=== PATIENT | female | born 1970 | race Caucasian/White ===

== ENCOUNTER 2016-05-26 13:18 | Day surgery (SDC) | payer SELFPAY ==
--- NOTE | ~2016-05-26 | OP ---
Record Of Operation [facility] [address] [place]. [address] NAME: CAMERON REARDON : 70 STATUS : REG [facility]#: [id number] AGE: 45 ADM/REG DATE : 05/26/16 MR#: [id number] REPORT SERV DATE: 05/27/16 DICTATED BY: COOPER MILLER III DATE: 05/26/16 REPORT STATUS : Draft TRANSCRIBED BY: MODL DATE: 05/26/16 DATE OF PROCEDURE: 05/26/2016 PROCEDURE: Cystoscopy, right ureteroscopic stone fragmentation, and insertion of double-J stent. PREOPERATIVE DIAGNOSIS: Right renal stone. POSTOPERATIVE DIAGNOSIS: Right renal stone. ANESTHESIA: General. DESCRIPTION OF PROCEDURE: Following induction of adequate general anesthesia, the patient placed in dorsal lithotomy position, prepped and draped in sterile fashion. The urethra was normal. The orifice was cannulated and a retrograde showed a mildly tortuous ureter. Filling defect was in the renal pelvis corresponding to the stone. A wire was placed and initially, I attempted to place an 11-Irish sheath. This would not traverse the pelvic brim. I then moved to 9.5 sheath which did go up without with minimal resistance. The scope was placed, and stone was identified. Due to the small sheath, I elected to dust the stone. This fragmented into a number of small fragments and the full kidney was emptied every 5 to 7 minutes to keep from over distending it. There was a moderate amount of bleeding, but visualization was good. After approximately 45 minutes to an hour, I felt that I really could do no more. I did a retrograde, there was no extravasation from the renal pelvis or ureter. The ureter was examined on the way out with the flexible scope. No perforation was noted. A 6 x 24 stent was placed over the loop in the kidney and loop in the bladder. The patient tolerated the procedure well. OB/MODL Cooper Miller III, M.D. / [id number] CC: Cooper Miller III, M.D.
[~2016-05-26 13:18] MED LIST: B121000P IM; BEN25 PO; IMITREX100 MG PO; LOP50 PO; NORCO1 TAB PO; PR25 PO; SYN1 PO
[2016-05-26 13:55] LABS: HEMATOCRIT 30.9 % (36.0-48.0); MEAN CORPUS HGB CONC 29.1 g/dL (32.0-36.0); MEAN CORPUSCULAR HEMOGLOB 18.8 pg (26.0-34.0); MEAN CORPUSCULAR VOLUME 64.6 fL (80-100); MEAN PLATELET VOLUME 9.1 fL (9.2-13.0); PLATELET COUNT 450 10/3/uL (150-400); RBC DISTRIBUTION WIDTH 18.6 % (12.0-16.0); RED CELL COUNT 4.78 10/6/uL (4.0-5.6); WHITE BLOOD CELLS 11.5 10/3/uL (4.5-10.5)
[2016-05-26 13:56] LABS: MANUAL DIFF YES %
[2016-05-26 14:08] LABS: BUN (BLOOD UREA NITROGEN) 13 MG/DL (6-23); CALCIUM, SERUM 8.6 MG/DL (8.5-10.4); CHLORIDE, SERUM 102 MMOL/L (96-112); CO2 (CARBON DIOXIDE) 27 MMOL/L (24-34); GFR AFRICAN AMERICAN 79 ML/MIN (>=60); GFR NON AFRICAN AMERICAN 68 ML/MIN (>=60); GLUCOSE, SERUM 100 MG/DL (60-99); POTASSIUM, SERUM 3.3 MMOL/L (3.5-5.3); SODIUM, SERUM 138 MMOL/L (135-148)
[2016-05-26 14:22] LABS: ANISOCYTOSIS 1+ (5-10/OIF) (0-5/OIF)
[2016-05-26 14:23] LABS: ELLIPTOCYTES 1+ (3-10/OIF) (0-2/OIF); HYPOCHROMIA 3+ (>30/OIF) (0-2/OIF); MICROCYTES 4+ (>50/OIF) (0-5/OIF); PLATELET ESTIMATE SLT INC (ADEQUATE)
[2016-07-10] MEDS ORDERED: OMNICEF300 PO (21:20)
[2016-07-10] MEDS ORDERED: CIP5 PO (21:20)
[2016-07-10] MEDS ORDERED: NORCO1 TAB PO (21:21)
[2016-07-10] MEDS ORDERED: DITRO5 PO (21:25)
[2016-07-10] MEDS ORDERED: PYR100B PO (21:25)
== END 2016-05-26 23:59 | disposition home or self-care (01) ==
LOC: SDC 13:18
PROVIDERS: Urology
PROC: 0T768DZ Dilation of Right Ureter with Intraluminal Device, Via Natural or Artificial Opening Endoscopic (ICD-10-PCS; 2016-05-26)
PROC: 0TF38ZZ Fragmentation in Right Kidney Pelvis, Via Natural or Artificial Opening Endoscopic (ICD-10-PCS; principal; 2016-05-26 15:00)
DX: N20.0 Calculus of kidney (principal); I10 Essential (primary) hypertension; G43.909 Migraine, unspecified, not intractable, without status migrainosus; K31.84 Gastroparesis; D64.9 Anemia, unspecified; E03.9 Hypothyroidism, unspecified; E66.9 Obesity, unspecified; Z68.31 Body mass index [BMI] 31.0-31.9, adult; Z90.3 Acquired absence of stomach [part of]; Z88.6 Allergy status to analgesic agent; Z88.8 Allergy status to other drugs, medicaments and biological substances; Z91.018 Allergy to other foods; Z79.899 Other long term (current) drug therapy; Z98.51 Tubal ligation status; Z98.890 Other specified postprocedural states; Z90.49 Acquired absence of other specified parts of digestive tract
CPT/HCPCS: 74420; 80048; 84703; 85025; 93005; A9270-GY; C1758; C1769; C1894; C2617; J1170; J2250; J2405; J2550; J2710; J3010; Q9967

== ENCOUNTER 2016-06-04 16:54 | Emergency (ER) | payer SELFPAY ==
[2016-06-04 15:35] LABS: BASOPHILS 0.5 %; BASOPHILS ABSOLUTE 0.06 10/3/uL (0.0-0.16); EOSINOPHILS 1.8 %; HEMATOCRIT 31.6 % (36.0-48.0); HEMOGLOBIN 9.1 g/dL (12.0-16.0); IMMATURE GRANULOCYTES 0.3 %; IMMATURE GRANULOCYTES ABSOLUTE 0.03 10/3/uL (0.0-0.11); LYMPHOCYTES 16.8 %; LYMPHOCYTES ABSOLUTE 1.91 10/3/uL (0.67-4.30); MEAN CORPUS HGB CONC 28.8 g/dL (32.0-36.0); MEAN CORPUSCULAR HEMOGLOB 18.7 pg (26.0-34.0); MEAN CORPUSCULAR VOLUME 64.9 fL (80-100); MONOCYTES 7.5 %; MONOCYTES ABSOLUTE 0.85 10/3/uL (0.21-1.20); NEUTROPHILS 73.1 %; NEUTROPHILS ABSOLUTE 8.33 10/3/uL (2.02-8.40); PLATELET COUNT 454 10/3/uL (150-400); RBC DISTRIBUTION WIDTH 19.3 % (12.0-16.0); RED CELL COUNT 4.87 10/6/uL (4.0-5.6); WHITE BLOOD CELLS 11.4 10/3/uL (4.5-10.5)
[2016-06-04 15:36] LABS: MANUAL DIFF NO %
[2016-06-04 15:46] LABS: ASCORBIC ACID (UR NOT ORDER) NEG (NEG); BILIRUBIN, URINE NEGATIVE (NEG); KETONE, URINE NEGATIVE (NEG); LEUKOCYTE ESTERASE(NOT OR SMALL (NEG); NITRITE (URINE) POS (NEG)
[2016-06-04 15:53] LABS: A/G RATIO 0.8 (0.7-1.9); ALBUMIN 3.4 G/DL (3.5-5.0); ALKALINE PHOSPHATASE 130 U/L (45-117); BUN (BLOOD UREA NITROGEN) 11 MG/DL (6-23); CALCIUM, SERUM 9.1 MG/DL (8.5-10.4); CHLORIDE, SERUM 105 MMOL/L (96-112); CO2 (CARBON DIOXIDE) 27 MMOL/L (24-34); CREATININE 0.84 MG/DL (0.55-1.02); GFR AFRICAN AMERICAN 97 ML/MIN (>=60); GFR NON AFRICAN AMERICAN 84 ML/MIN (>=60); GLOBULIN 4.3 G/DL (2.5-4.1); GLUCOSE, SERUM 102 MG/DL (60-99); POTASSIUM, SERUM 3.6 MMOL/L (3.5-5.3); SGOT(AST) 17 U/L (5-40); SGPT(ALT) 18 U/L (5-65); SODIUM, SERUM 138 MMOL/L (135-148); TOTAL BILIRUBIN 0.2 MG/DL (0-1.2); TOTAL PROTEIN 7.7 G/DL (6.0-8.5)
[2016-06-04 15:53] LABS: WBC (NOT ORDERED) (RFLEX) > 182 (0-5)
[2016-06-04 15:55] LABS: ANISOCYTOSIS 1+ (5-10/OIF) (0-5/OIF)
[2016-06-04 15:56] LABS: HYPOCHROMIA 3+ (>30/OIF) (0-2/OIF); PLATELET ESTIMATE SLT INC (ADEQUATE)
[2016-06-04 15:57] LABS: POLYCHROMASIA 1+ (2-5/OIF) (0-1/OIF)
[2016-07-10] MEDS ORDERED: OMNICEF300 PO (21:20)
[2016-07-10] MEDS ORDERED: CIP5 PO (21:20)
[2016-07-10] MEDS ORDERED: NORCO1 TAB PO (21:21)
[2016-07-10] MEDS ORDERED: DITRO5 PO (21:25)
[2016-07-10] MEDS ORDERED: PYR100B PO (21:25)
== END 2016-06-04 17:00 | disposition home or self-care (01) ==
LOC: ER 16:54
PROVIDERS: Physician Assistant Medical
DX: N39.0 Urinary tract infection, site not specified (principal); D64.9 Anemia, unspecified; Z87.442 Personal history of urinary calculi; Z88.6 Allergy status to analgesic agent; Z91.018 Allergy to other foods; Z79.899 Other long term (current) drug therapy
CPT/HCPCS: 74000; 80053; 81001; 85025; 87086; 96374; 96375; 99284; J1170; J2405

== ENCOUNTER 2016-06-07 05:06 | Emergency (ER) | payer SELFPAY ==
[2016-06-07 03:13] LABS: BASOPHILS 0.6 %; BASOPHILS ABSOLUTE 0.08 10/3/uL (0.0-0.16); EOSINOPHILS 2.6 %; EOSINOPHILS ABSOLUTE 0.35 10/3/uL (0.0-0.53); HEMATOCRIT 30.8 % (36.0-48.0); HEMOGLOBIN 8.9 g/dL (12.0-16.0); IMMATURE GRANULOCYTES 0.2 %; IMMATURE GRANULOCYTES ABSOLUTE 0.02 10/3/uL (0.0-0.11); LYMPHOCYTES 26.2 %; LYMPHOCYTES ABSOLUTE 3.49 10/3/uL (0.67-4.30); MEAN CORPUS HGB CONC 28.9 g/dL (32.0-36.0); MEAN CORPUSCULAR HEMOGLOB 18.9 pg (26.0-34.0); MEAN CORPUSCULAR VOLUME 65.4 fL (80-100); MEAN PLATELET VOLUME 8.5 fL (9.2-13.0); MONOCYTES 6.5 %; MONOCYTES ABSOLUTE 0.87 10/3/uL (0.21-1.20); NEUTROPHILS 63.9 %; PLATELET COUNT 442 10/3/uL (150-400); RBC DISTRIBUTION WIDTH 19.2 % (12.0-16.0); RED CELL COUNT 4.71 10/6/uL (4.0-5.6); WHITE BLOOD CELLS 13.3 10/3/uL (4.5-10.5)
[2016-06-07 03:14] LABS: MANUAL DIFF NO %
[2016-06-07 03:25] LABS: ASCORBIC ACID (UR NOT ORDER) NEG (NEG); BILIRUBIN, URINE NEGATIVE (NEG); ER URINALYSIS TAT 0 Hrs 00 Mins; KETONE, URINE NEGATIVE (NEG); LEUKOCYTE ESTERASE(NOT OR NEG (NEG); NITRITE (URINE) POS (NEG)
[2016-06-07 03:26] LABS: BUN (BLOOD UREA NITROGEN) 13 MG/DL (6-23); CALCIUM, SERUM 8.8 MG/DL (8.5-10.4); CHLORIDE, SERUM 107 MMOL/L (96-112); CO2 (CARBON DIOXIDE) 25 MMOL/L (24-34); CREATININE 0.87 MG/DL (0.55-1.02); GFR AFRICAN AMERICAN 93 ML/MIN (>=60); GFR NON AFRICAN AMERICAN 80 ML/MIN (>=60); GLUCOSE, SERUM 94 MG/DL (60-99); POTASSIUM, SERUM 3.4 MMOL/L (3.5-5.3); SODIUM, SERUM 142 MMOL/L (135-148); WBC (NOT ORDERED) (RFLEX) > 182 (0-5)
[2016-06-07 03:35] LABS: ANISOCYTOSIS 1+ (5-10/OIF) (0-5/OIF); HYPOCHROMIA 3+ (>30/OIF) (0-2/OIF); MICROCYTES 4+ (>50/OIF) (0-5/OIF); PLATELET ESTIMATE SLT INC (ADEQUATE); POLYCHROMASIA 1+ (2-5/OIF) (0-1/OIF)
[2016-07-10] MEDS ORDERED: CIP5 PO (21:20)
[2016-07-10] MEDS ORDERED: OMNICEF300 PO (21:20)
[2016-07-10] MEDS ORDERED: NORCO1 TAB PO (21:21)
[2016-07-10] MEDS ORDERED: DITRO5 PO (21:25)
[2016-07-10] MEDS ORDERED: PYR100B PO (21:25)
== END 2016-06-07 06:30 | disposition home or self-care (01) ==
LOC: ER 05:06
PROVIDERS: Specialist
DX: R10.31 Right lower quadrant pain (principal); D64.9 Anemia, unspecified; Z87.442 Personal history of urinary calculi; Z88.8 Allergy status to other drugs, medicaments and biological substances; Z88.6 Allergy status to analgesic agent; Z79.899 Other long term (current) drug therapy
CPT/HCPCS: 74176; 80048; 81001; 85025; 87086; 96374; 96375; 99284; A9270-GY; J1170; J2405

== ENCOUNTER 2016-06-08 23:28 | Observation (INO) | payer SELFPAY ==
--- NOTE | ~2016-06-08 | OP ---
Record Of Operation [facility] [address] [place]. [address] NAME: CAMERON REARDON : 70 STATUS : ADM Ramirez PAT#: [id number] AGE: 45 ADM/REG DATE : 06/09/16 MR#: [id number] REPORT SERV DATE: 06/10/16 DICTATED BY: COOPER MILLER III DATE: 06/09/16 REPORT STATUS : Draft TRANSCRIBED BY: MODDonavon DATE: 06/09/16 DATE OF PROCEDURE: PROCEDURE: Cystoscopy, right retrograde, right ureteroscopic stone removal, and stone fragmentation with removal of right renal calculus, and reinsertion of double-J stent. PREOPERATIVE DIAGNOSIS: Status post fragmentation of renal stone. POSTOPERATIVE DIAGNOSIS: Status post fragmentation of renal stone. ANESTHESIA: General. SURGEON: Cooper Miller M.D. DESCRIPTION OF PROCEDURE: Following induction of adequate general anesthesia, the patient placed in dorsal lithotomy position, prepped and draped in a sterile fashion. The urethra was entered, and the stent was grasped, and it had started to encrust after 13 days but was pulled through easily. Wire was placed in the kidney. The ureteroscopy was done almost to the UPJ with a rigid ureteroscope, several small stones were removed from the ureter after which a 11-Irish 28 cm sheath was placed to the UPJ. I found the stone in the mid pole and began to fragment it and dust it. It broken into 5 or 6 small pieces and 1 larger fragment that migrated to another calyx. We removed several of the smaller fragments and then I fragmented the last remaining fragment into 3 to 4 fragments. She was taking fairly deep breaths and while I did have to slow her rate due to movement of the kidney toward the end of the procedure, several of the laser taps hit the mucosa when the stone bounced away, and there was some bleeding. I was able to visualize the stones, we actually got out the larger of the fragments and a final exam did reveal some small clots in the kidney. There was no extravasation with dye, and I examined the ureter on the way out. There were no significant stones within the proximal ureter. The distal ureter revealed no extravasation or visible trauma. A five 24-Irish stent was placed with a loop in the upper pole and a loop in the bladder with a suture taped to the abdomen for later removal. She tolerated the procedure well. OB/MODL Cooper Miller III, M.D. / [id number] CC: Cooper Miller III, M.D.
[2016-06-09 00:41] LABS: ASCORBIC ACID (UR NOT ORDER) NEG (NEG); BILIRUBIN, URINE NEGATIVE (NEG); ER URINALYSIS TAT 0 Hrs 00 Mins; KETONE, URINE TRACE MG/DL (NEG); LEUKOCYTE ESTERASE(NOT OR SMALL (NEG); NITRITE (URINE) POS (NEG); WBC (NOT ORDERED) (RFLEX) 85 (0-5)
[2016-06-09 01:29] LABS: BASOPHILS 0.6 %; BASOPHILS ABSOLUTE 0.07 10/3/uL (0.0-0.16); EOSINOPHILS 2.6 %; HEMATOCRIT 29.2 % (36.0-48.0); HEMOGLOBIN 8.5 g/dL (12.0-16.0); IMMATURE GRANULOCYTES 0.3 %; IMMATURE GRANULOCYTES ABSOLUTE 0.04 10/3/uL (0.0-0.11); LYMPHOCYTES 26.5 %; LYMPHOCYTES ABSOLUTE 3.07 10/3/uL (0.67-4.30); MEAN CORPUS HGB CONC 29.1 g/dL (32.0-36.0); MEAN CORPUSCULAR VOLUME 65.2 fL (80-100); MEAN PLATELET VOLUME 8.7 fL (9.2-13.0); MONOCYTES 6.9 %; NEUTROPHILS 63.1 %; NEUTROPHILS ABSOLUTE 7.32 10/3/uL (2.02-8.40); PLATELET COUNT 426 10/3/uL (150-400); RBC DISTRIBUTION WIDTH 19.2 % (12.0-16.0); RED CELL COUNT 4.48 10/6/uL (4.0-5.6); WHITE BLOOD CELLS 11.6 10/3/uL (4.5-10.5)
[2016-06-09 01:30] LABS: MANUAL DIFF NO %
[2016-06-09 01:46] LABS: A/G RATIO 0.8 (0.7-1.9); ALBUMIN 3.2 G/DL (3.5-5.0); BUN (BLOOD UREA NITROGEN) 12 MG/DL (6-23); CALCIUM, SERUM 8.7 MG/DL (8.5-10.4); CHLORIDE, SERUM 104 MMOL/L (96-112); CO2 (CARBON DIOXIDE) 27 MMOL/L (24-34); CREATININE 0.83 MG/DL (0.55-1.02); GFR AFRICAN AMERICAN 99 ML/MIN (>=60); GFR NON AFRICAN AMERICAN 85 ML/MIN (>=60); GLOBULIN 4.2 G/DL (2.5-4.1); GLUCOSE, SERUM 95 MG/DL (60-99); POTASSIUM, SERUM 3.4 MMOL/L (3.5-5.3); SGOT(AST) 11 U/L (5-40); SGPT(ALT) 17 U/L (5-65); SODIUM, SERUM 140 MMOL/L (135-148); TOTAL BILIRUBIN 0.2 MG/DL (0-1.2); TOTAL PROTEIN 7.4 G/DL (6.0-8.5)
[2016-06-09 01:48] LABS: ALKALINE PHOSPHATASE 116 U/L (45-117)
[2016-06-09 01:58] LABS: ANISOCYTOSIS 1+ (5-10/OIF) (0-5/OIF); MICROCYTES 4+ (>50/OIF) (0-5/OIF); PLATELET ESTIMATE SLT INC (ADEQUATE); POIKILOCYTOSIS 1+ (5-10/OIF) (0-5/OIF); RBC MORPHOLOGY ABN (NORMAL)
[2016-06-09] MEDS ORDERED: DIL2TAB PO (03:20)
[2016-06-09] MEDS ORDERED: PR25 PO (03:22)
[2016-06-09] MEDS ORDERED: MACROBID PO (03:22)
[2016-06-09] MEDS ORDERED: SYN1 PO (03:22)
[2016-06-09] MEDS ORDERED: BEN25 PO (03:23)
[2016-06-09] MEDS ORDERED: IMITREX100 MG PO (03:23)
[2016-06-09] MEDS ORDERED: B121000P IM/SC (03:23)
[2016-06-09] MEDS ORDERED: LOP25 PO (03:23)
[2016-06-10 06:36] LABS: BASOPHILS 0.6 %; BASOPHILS ABSOLUTE 0.05 10/3/uL (0.0-0.16); EOSINOPHILS 4.3 %; EOSINOPHILS ABSOLUTE 0.38 10/3/uL (0.0-0.53); HEMOGLOBIN 7.6 g/dL (12.0-16.0); IMMATURE GRANULOCYTES 0.1 %; IMMATURE GRANULOCYTES ABSOLUTE 0.01 10/3/uL (0.0-0.11); LYMPHOCYTES 24.1 %; LYMPHOCYTES ABSOLUTE 2.11 10/3/uL (0.67-4.30); MEAN CORPUS HGB CONC 28.1 g/dL (32.0-36.0); MEAN CORPUSCULAR HEMOGLOB 18.7 pg (26.0-34.0); MEAN CORPUSCULAR VOLUME 66.5 fL (80-100); MEAN PLATELET VOLUME 8.8 fL (9.2-13.0); MONOCYTES 8.7 %; MONOCYTES ABSOLUTE 0.76 10/3/uL (0.21-1.20); NEUTROPHILS 62.2 %; NEUTROPHILS ABSOLUTE 5.45 10/3/uL (2.02-8.40); PLATELET COUNT 382 10/3/uL (150-400); RBC DISTRIBUTION WIDTH 19.5 % (12.0-16.0); RED CELL COUNT 4.06 10/6/uL (4.0-5.6); WHITE BLOOD CELLS 8.8 10/3/uL (4.5-10.5)
[2016-06-10 06:41] LABS: MANUAL DIFF NO %
[2016-06-10 07:37] LABS: PLATELET ESTIMATE ADQ (ADEQUATE)
[2016-06-10 07:38] LABS: ANISOCYTOSIS 1+ (5-10/OIF) (0-5/OIF); HYPOCHROMIA 3+ (>30/OIF) (0-2/OIF)
[2016-06-10 12:15] LABS: HEMATOCRIT 28.6 % (36.0-48.0); HEMOGLOBIN 7.9 g/dL (12.0-16.0)
[2016-06-10 12:26] LABS: CALCIUM, SERUM 8.4 MG/DL (8.5-10.4); CHLORIDE, SERUM 103 MMOL/L (96-112); CO2 (CARBON DIOXIDE) 25 MMOL/L (24-34); CREATININE 0.74 MG/DL (0.55-1.02); GFR AFRICAN AMERICAN 113 ML/MIN (>=60); GFR NON AFRICAN AMERICAN 98 ML/MIN (>=60); GLUCOSE, SERUM 111 MG/DL (60-99); POTASSIUM, SERUM 3.7 MMOL/L (3.5-5.3); SODIUM, SERUM 136 MMOL/L (135-148)
[2016-06-10 12:27] LABS: BUN (BLOOD UREA NITROGEN) 7 MG/DL (6-23)
[2016-06-10] MEDS ORDERED: PR25 PO (16:24)
[2016-06-10] MEDS ORDERED: DIL2TAB PO (16:25)
[2016-06-10] MEDS ORDERED: PYR200 PO (16:26)
[2016-06-15 14:30] LABS: STONE COMPOSITION TWO DNR (())
[2016-07-10] MEDS ORDERED: CIP5 PO (21:20)
[2016-07-10] MEDS ORDERED: OMNICEF300 PO (21:20)
[2016-07-10] MEDS ORDERED: NORCO1 TAB PO (21:21)
[2016-07-10] MEDS ORDERED: DITRO5 PO (21:25)
[2016-07-10] MEDS ORDERED: PYR100B PO (21:25)
== END 2016-06-10 18:59 | disposition home or self-care (01) ==
LOC: ER 23:28 → 6NO 06-09 03:20
PROVIDERS: Nurse Practitioner; Urology
PROC: 0TF38ZZ Fragmentation in Right Kidney Pelvis, Via Natural or Artificial Opening Endoscopic (ICD-10-PCS; principal; 2016-06-10)
PROC: 0TF68ZZ Fragmentation in Right Ureter, Via Natural or Artificial Opening Endoscopic (ICD-10-PCS; 2016-06-10)
PROC: 0T768DZ Dilation of Right Ureter with Intraluminal Device, Via Natural or Artificial Opening Endoscopic (ICD-10-PCS; 2016-06-10)
PROC: BT1D1ZZ Fluoroscopy of Right Kidney, Ureter and Bladder using Low Osmolar Contrast (ICD-10-PCS; 2016-06-10)
DX: N20.2 Calculus of kidney with calculus of ureter (principal); I10 Essential (primary) hypertension; K31.84 Gastroparesis; E03.9 Hypothyroidism, unspecified; D51.9 Vitamin B12 deficiency anemia, unspecified; E66.9 Obesity, unspecified; Z68.31 Body mass index [BMI] 31.0-31.9, adult; Z90.3 Acquired absence of stomach [part of]; Z88.6 Allergy status to analgesic agent; Z88.8 Allergy status to other drugs, medicaments and biological substances; Z91.018 Allergy to other foods; Z79.2 Long term (current) use of antibiotics; Z79.899 Other long term (current) drug therapy
CPT/HCPCS: 74420; 80048; 80053; 81001; 82365; 83690; 85014; 85018; 85025; 87086; 96374; 96375; 96376; 99285; A9270-GY; C1769; C2617; G0378; J1170; J1200; J2250; J2360; J2405; J2550; J3010; Q9967

== ENCOUNTER 2016-06-30 13:31 | Inpatient (IN) | payer SELFPAY ==
--- NOTE | ~2016-06-30 | HP ---
History And Physical [address] [place]. [address] NAME: CAMERON REARDON : 70 STATUS : ADM Ramirez PAT#: [id number] AGE: 45 ADM/REG DATE : 06/30/16 MR#: [id number] REPORT SERV DATE: 07/01/16 DICTATED BY: COOPER MILLER III DATE: 07/01/16 REPORT STATUS : Draft TRANSCRIBED BY: MODL DATE: 07/01/16 DATE OF ADMISSION: 06/30/2016 REASON FOR ADMISSION: Right flank pain and left renal calculus. HISTORY OF PRESENT ILLNESS: She is a 45-year-old, white female, who is approximately 3 weeks post ureteroscopy and removal of large right renal pelvic stone. She has had been having right flank pain for 2-3 days, also some nausea and vomiting. She has a gastric bypass and states that she does have difficulty with profuse nausea and vomiting in the presence of any type of pain. Most of her pain was on the right side, very little on the left. She had some mild urgency, frequency, and dysuria yesterday. She has had no gross hematuria. No fever. PAST MEDICAL HISTORY: Chronic anemia, gastroparesis, hypothyroidism, migraines and hypertension. She has had a partial gastrectomy, tubal , appendectomy, gastric bypass, cholecystectomy and finally a complete gastrectomy. MEDICATIONS: Synthroid, metoprolol, and Benadryl. ALLERGIES: ATIVAN, CODEINE, SSRI, STRAWBERRIES, AND BENZOIN. SOCIAL HISTORY: She rarely drinks and does not smoke. FAMILY HISTORY: Positive for stones. PHYSICAL EXAMINATION: VITAL SIGNS: Blood pressure 142/67, she has been afebrile, pulse was in 70-90. GENERAL: She was dry heaving, not really complaining of pain more of nausea. HEENT: Her to be flushed. Mucous membranes were dry. NECK: Supple. LUNGS: Clear. HEART: She had regular rate and rhythm without murmur or gallop at the rate of 80. There was very mild right flank tenderness with minimal to none on the left. ABDOMEN: Soft. Bowel sounds are present and active. There was tenderness in the left lower quadrant. EXTREMITIES: There was no pedal edema. LABORATORY DATA: White count of 8.7, hemoglobin 7.6, platelets were 215. Chemistry; included potassium at 3.7, glucose of 111, urinalysis had rare bacteria, 10 epithelials. Leukocyte esterase were high, nitrates negative, 11 RBCs, [address] scan showed of a cluster stones in the left kidney with a 5 mm stone in the proximal ureter. The right kidney seemed somewhat smaller than the left, there was no obstruction. There was 1 mm stones remaining in the right kidney. IMPRESSION: Left ureteral calculus with inflammatory urine, she does not look toxic. The urinalysis is somewhat given the squamous cells; however, rbc's and wbc's are uncommon in History And Physical [address] [place]. [address] NAME: CAMERON REARDON : 70 STATUS : ADM Ramirez PAT#: [id number] AGE: 45 ADM/REG DATE : 06/30/16 MR#: [id number] REPORT SERV DATE: 07/01/16 DICTATED BY: COOPER MILLER III DATE: 07/01/16 REPORT STATUS : Draft TRANSCRIBED BY: MODL DATE: 07/01/16 this range with simple ureteral calculus. The right flank pain is somewhat puzzling. Her scan did not show a distal stone that would account for urgency and frequency, simply may be a urinary tract infection. I will go ahead and retrograde her right side to see if there is a distal stone and if access is easy, we will go up and try to remove the left ureteral calculus. She understands risks, complications of ureteroscopy from her previous surgery and we will keep her n.p.o., continue antibiotics and IV fluids. OB/MODL Cooper Miller III, M.D. / [id number] CC: Cooper Miller III, M.D.
--- NOTE | ~2016-06-30 | OP ---
Record Of Operation [facility] [address] [place]. [address] NAME: CAMERON REARDON : 70 STATUS : ADM Ramirez PAT#: [id number] AGE: 45 ADM/REG DATE : 06/30/16 MR#: [id number] REPORT SERV DATE: 07/02/16 DICTATED BY: COOPER MILLER III DATE: 07/01/16 REPORT STATUS : Draft TRANSCRIBED BY: MODL DATE: 07/01/16 DATE OF PROCEDURE: 06/30/2016 PROCEDURE: Cystoscopy, right retrograde right ureteroscopy, left ureteroscopic stone fragmentation, removal of ureteral calculus, and insertion of left double-J stent. PREOPERATIVE DIAGNOSIS: 1. Right flank pain, possible pyelonephritis, possible distal stone. 2. Left ureteral calculus. POSTOPERATIVE DIAGNOSIS: 1. Right flank pain, possible pyelonephritis, possible distal stone. 2. Left ureteral calculus. ANESTHESIA: General. SURGEON: Cooper Miller M.D. DESCRIPTION OF PROCEDURE: Following induction of adequate general anesthesia, the patient was placed in the dorsal lithotomy position, prepped and draped in a sterile fashion. The urethra was normal. The bladder was unremarkable. Right retrograde was unremarkable. A wire was placed and the ureter was widely patent all the way to the UPJ. The urine was clear. No stones. I did not look in the kidney since the CT had shown no significant stones on the left side. A retrograde was done. A wire was placed and over the wire, a sheath was placed. The ureteral stone was encountered, fragmented into 4 to 5 fragments; 2 to 3 larger ones were retrieved. I then looked in the kidney and then the mid pole calyx. There was a calyx that was dilated with a fairly narrow infundibulum and at least 6 or 7 stones in the 4 to 6 mm range. I felt this was too much to try to remove particularly in the face of possible infection. So a stent was placed with a loop in the middle calyx and a loop in the bladder. The suture was cut. We will remove her stent in several weeks and consider a percutaneous procedure. OB/MODL Cooper Miller III, M.D. / [id number] CC: Cooper Miller III, M.D.
[~2016-06-30 13:31] MED LIST changes: +B121000P IM/SC; +DIL2TAB PO; +LOP25 PO; +MACROBID PO; +PYR200 PO
[2016-06-30 13:56] LABS: BASOPHILS 0.6 %; BASOPHILS ABSOLUTE 0.05 10/3/uL (0.0-0.16); EOSINOPHILS 1.4 %; EOSINOPHILS ABSOLUTE 0.12 10/3/uL (0.0-0.53); HEMATOCRIT 25.8 % (36.0-48.0); HEMOGLOBIN 7.6 g/dL (12.0-16.0); IMMATURE GRANULOCYTES 0.2 %; IMMATURE GRANULOCYTES ABSOLUTE 0.02 10/3/uL (0.0-0.11); LYMPHOCYTES 16.5 %; LYMPHOCYTES ABSOLUTE 1.43 10/3/uL (0.67-4.30); MANUAL DIFF NO %; MEAN CORPUS HGB CONC 29.5 g/dL (32.0-36.0); MEAN CORPUSCULAR HEMOGLOB 18.6 pg (26.0-34.0); MEAN CORPUSCULAR VOLUME 63.1 fL (80-100); MEAN PLATELET VOLUME 8.8 fL (9.2-13.0); MONOCYTES 6.6 %; MONOCYTES ABSOLUTE 0.57 10/3/uL (0.21-1.20); NEUTROPHILS 74.7 %; PLATELET COUNT 215 10/3/uL (150-400); RBC DISTRIBUTION WIDTH 19.3 % (12.0-16.0); RED CELL COUNT 4.09 10/6/uL (4.0-5.6); WHITE BLOOD CELLS 8.7 10/3/uL (4.5-10.5)
[2016-06-30 14:06] LABS: ASCORBIC ACID (UR NOT ORDER) NEG (NEG); BILIRUBIN, URINE NEGATIVE (NEG); ER URINALYSIS TAT 0 Hrs 13 Mins; KETONE, URINE NEGATIVE (NEG); LEUKOCYTE ESTERASE(NOT OR MOD (NEG); NITRITE (URINE) NEG (NEG); WBC (NOT ORDERED) (RFLEX) 13 (0-5)
[2016-06-30 14:11] LABS: A/G RATIO 1.1 (0.7-1.9); ALBUMIN 3.9 G/DL (3.5-5.0); ALKALINE PHOSPHATASE 120 U/L (45-117); BUN (BLOOD UREA NITROGEN) 13 MG/DL (6-23); CALCIUM, SERUM 8.7 MG/DL (8.5-10.4); CHLORIDE, SERUM 109 MMOL/L (96-112); CO2 (CARBON DIOXIDE) 22 MMOL/L (24-34); CREATININE 0.86 MG/DL (0.55-1.02); GFR AFRICAN AMERICAN 95 ML/MIN (>=60); GFR NON AFRICAN AMERICAN 82 ML/MIN (>=60); GLOBULIN 3.7 G/DL (2.5-4.1); GLUCOSE, SERUM 111 MG/DL (60-99); SGPT(ALT) 17 U/L (5-65); SODIUM, SERUM 140 MMOL/L (135-148); TOTAL BILIRUBIN 0.2 MG/DL (0-1.2); TOTAL PROTEIN 7.6 G/DL (6.0-8.5)
[2016-06-30 14:15] LABS: POTASSIUM, SERUM 3.7 MMOL/L (3.5-5.3); SGOT(AST) 39 U/L (5-40)
[2016-06-30 14:33] LABS: ANISOCYTOSIS 1+ (5-10/OIF) (0-5/OIF); HYPOCHROMIA 3+ (>30/OIF) (0-2/OIF); MICROCYTES 4+ (>50/OIF) (0-5/OIF); PLATELET ESTIMATE ADQ (ADEQUATE); RBC MORPHOLOGY ABN (NORMAL)
[2016-06-30] MEDS ORDERED: LOP50 PO (17:40)
[2016-06-30] MEDS ORDERED: SYN1 PO (17:40)
[2016-06-30] MEDS ORDERED: ACET500CAP PO (17:41)
[2016-06-30] MEDS ORDERED: BEN25 PO (17:41)
[2016-06-30] MEDS ORDERED: MIRALAX POWDER1 PKT PO (17:42)
[2016-06-30] MEDS ORDERED: PR25 PO (17:43)
[2016-06-30] MEDS ORDERED: B121000P IM (17:43)
[2016-06-30] MEDS ORDERED: IMITREX100 MG PO (17:44)
[2016-07-01 13:40] LABS: HEMOGLOBIN 8.3 g/dL (12.0-16.0)
[2016-07-01 13:43] LABS: HEMATOCRIT 28.6 % (36.0-48.0)
[2016-07-01 13:47] LABS: INTERNATIONAL NORMAL RATI 1.1 UNITS (-); PROTIME (NOT ORD) 14.2 SEC (12.0-14.5)
[2016-07-01 13:56] LABS: ALBUMIN 3.8 G/DL (3.5-5.0); ALKALINE PHOSPHATASE 124 U/L (45-117); BUN (BLOOD UREA NITROGEN) 6 MG/DL (6-23); CALCIUM, SERUM 8.3 MG/DL (8.5-10.4); CHLORIDE, SERUM 109 MMOL/L (96-112); CO2 (CARBON DIOXIDE) 24 MMOL/L (24-34); CREATININE 0.61 MG/DL (0.55-1.02); DIRECT BILIRUBIN 0.1 MG/DL (0.0-0.4); GFR AFRICAN AMERICAN 127 ML/MIN (>=60); GFR NON AFRICAN AMERICAN 109 ML/MIN (>=60); GLUCOSE, SERUM 111 MG/DL (60-99); INDIRECT BILIRUBIN(NOT ORDER) 0.2 MG/DL (0.1-0.9); POTASSIUM, SERUM 3.7 MMOL/L (3.5-5.3); SGOT(AST) 9 U/L (5-40); SGPT(ALT) 14 U/L (5-65); SODIUM, SERUM 140 MMOL/L (135-148); TOTAL BILIRUBIN 0.3 MG/DL (0-1.2); TOTAL PROTEIN 7.2 G/DL (6.0-8.5)
[2016-07-02 05:09] LABS: BUN (BLOOD UREA NITROGEN) 4 MG/DL (6-23); CALCIUM, SERUM 7.8 MG/DL (8.5-10.4); CHLORIDE, SERUM 111 MMOL/L (96-112); CO2 (CARBON DIOXIDE) 22 MMOL/L (24-34); GFR AFRICAN AMERICAN 103 ML/MIN (>=60); GFR NON AFRICAN AMERICAN 89 ML/MIN (>=60); GLUCOSE, SERUM 116 MG/DL (60-99); POTASSIUM, SERUM 3.5 MMOL/L (3.5-5.3); SODIUM, SERUM 142 MMOL/L (135-148)
[2016-07-02 06:18] LABS: BASOPHILS 0.6 %; BASOPHILS ABSOLUTE 0.06 10/3/uL (0.0-0.16); HEMOGLOBIN 7.5 g/dL (12.0-16.0); IMMATURE GRANULOCYTES 0.3 %; IMMATURE GRANULOCYTES ABSOLUTE 0.03 10/3/uL (0.0-0.11); LYMPHOCYTES 26.1 %; LYMPHOCYTES ABSOLUTE 2.58 10/3/uL (0.67-4.30); MEAN CORPUS HGB CONC 29.5 g/dL (32.0-36.0); MEAN CORPUSCULAR HEMOGLOB 18.7 pg (26.0-34.0); MEAN CORPUSCULAR VOLUME 63.3 fL (80-100); MEAN PLATELET VOLUME 8.9 fL (9.2-13.0); MONOCYTES 9.3 %; MONOCYTES ABSOLUTE 0.92 10/3/uL (0.21-1.20); NEUTROPHILS 61.7 %; RBC DISTRIBUTION WIDTH 19.4 % (12.0-16.0); RED CELL COUNT 4.01 10/6/uL (4.0-5.6); WHITE BLOOD CELLS 9.9 10/3/uL (4.5-10.5)
[2016-07-02 06:19] LABS: HEMATOCRIT 25.4 % (36.0-48.0); MANUAL DIFF NO %; PLATELET COUNT 315 10/3/uL (150-400)
[2016-07-02 06:54] LABS: ANISOCYTOSIS 1+ (5-10/OIF) (0-5/OIF); MICROCYTES 4+ (>50/OIF) (0-5/OIF); PLATELET ESTIMATE ADQ (ADEQUATE)
[2016-07-02 06:55] LABS: ELLIPTOCYTES 1+ (3-10/OIF) (0-2/OIF); HELMET CELLS OCC (0-2/OIF); HYPOCHROMIA 3+ (>30/OIF) (0-2/OIF); POLYCHROMASIA 1+ (2-5/OIF) (0-1/OIF); TEARDROP SHAPED RBCS OCC (0-2/OIF)
[2016-07-02 06:56] LABS: POIKILOCYTOSIS 1+ (5-10/OIF) (0-5/OIF)
[2016-07-02] MEDS ORDERED: PR25 PO (12:51)
[2016-07-02] MEDS ORDERED: PERCOCET 7.5/321 TAB PO (12:51)
[2016-07-07 19:09] LABS: STONE COMPOSITION TWO DNR (())
[2016-07-10] MEDS ORDERED: CIP5 PO (21:20)
[2016-07-10] MEDS ORDERED: OMNICEF300 PO (21:20)
[2016-07-10] MEDS ORDERED: NORCO1 TAB PO (21:21)
[2016-07-10] MEDS ORDERED: PYR100B PO (21:25)
[2016-07-10] MEDS ORDERED: DITRO5 PO (21:25)
== END 2016-07-02 15:03 | disposition home or self-care (01) | DRG 669 ==
LOC: ER 13:31 → CDU1 17:37 → CDU2 19:27 → SDC/OF 07-01 14:57 → PACU 07-01 18:13 → 4SO 07-01 22:26
PROVIDERS: Emergency Medicine; Urology
PROC: 0T778DZ Dilation of Left Ureter with Intraluminal Device, Via Natural or Artificial Opening Endoscopic (ICD-10-PCS; principal; 2016-07-01 15:45)
PROC: 0TC78ZZ Extirpation of Matter from Left Ureter, Via Natural or Artificial Opening Endoscopic (ICD-10-PCS; principal; 2016-07-01 15:45)
PROC: BT14ZZZ Fluoroscopy of Kidneys, Ureters and Bladder (ICD-10-PCS; principal; 2016-07-01 15:45)
DX: N20.2 Calculus of kidney with calculus of ureter (principal); N12 Tubulo-interstitial nephritis, not specified as acute or chronic; I10 Essential (primary) hypertension; Z87.442 Personal history of urinary calculi; D64.9 Anemia, unspecified; E03.9 Hypothyroidism, unspecified; Z98.84 Bariatric surgery status; K31.84 Gastroparesis; Z88.8 Allergy status to other drugs, medicaments and biological substances; Z88.5 Allergy status to narcotic agent; Z91.018 Allergy to other foods
CPT/HCPCS: 74176; 74420; 80048; 80053; 80076; 81001; 82365; 83690; 84703; 85014; 85018; 85025; 85610; 87086; 93005; 96374; 96375; 96376; 99285; A9270-GY; C1758; C1769; C2617; J0330; J1170; J2250; J2270; J2405; J2550; J2710; Q9967

== ENCOUNTER 2016-07-05 03:08 | Emergency (ER) | payer SELFPAY ==
[2016-07-05 02:45] LABS: ASCORBIC ACID (UR NOT ORDER) NEG (NEG); BILIRUBIN, URINE NEGATIVE (NEG); ER URINALYSIS TAT 0 Hrs 00 Mins; KETONE, URINE NEGATIVE (NEG); LEUKOCYTE ESTERASE(NOT OR SMALL (NEG); NITRITE (URINE) POS (NEG); WBC (NOT ORDERED) (RFLEX) 28 (0-5)
[2016-07-05 02:48] LABS: BASOPHILS 0.5 %; BASOPHILS ABSOLUTE 0.05 10/3/uL (0.0-0.16); EOSINOPHILS 3.3 %; EOSINOPHILS ABSOLUTE 0.32 10/3/uL (0.0-0.53); ER CBC TAT 0 Hrs 03 Mins; HEMATOCRIT 27.2 % (36.0-48.0); HEMOGLOBIN 7.9 g/dL (12.0-16.0); IMMATURE GRANULOCYTES 0.1 %; IMMATURE GRANULOCYTES ABSOLUTE 0.01 10/3/uL (0.0-0.11); LYMPHOCYTES 20.7 %; LYMPHOCYTES ABSOLUTE 1.98 10/3/uL (0.67-4.30); MEAN CORPUSCULAR HEMOGLOB 18.4 pg (26.0-34.0); MEAN CORPUSCULAR VOLUME 63.4 fL (80-100); MEAN PLATELET VOLUME 8.6 fL (9.2-13.0); MONOCYTES 8.3 %; MONOCYTES ABSOLUTE 0.79 10/3/uL (0.21-1.20); NEUTROPHILS 67.1 %; NEUTROPHILS ABSOLUTE 6.42 10/3/uL (2.02-8.40); PLATELET COUNT 330 10/3/uL (150-400); RBC DISTRIBUTION WIDTH 19.2 % (12.0-16.0); RED CELL COUNT 4.29 10/6/uL (4.0-5.6); WHITE BLOOD CELLS 9.6 10/3/uL (4.5-10.5)
[2016-07-05 02:49] LABS: MANUAL DIFF NO %
[2016-07-05 02:59] LABS: CALCIUM, SERUM 8.6 MG/DL (8.5-10.4); CHLORIDE, SERUM 107 MMOL/L (96-112); CREATININE 0.68 MG/DL (0.55-1.02); GFR AFRICAN AMERICAN 122 ML/MIN (>=60); GFR NON AFRICAN AMERICAN 106 ML/MIN (>=60); GLUCOSE, SERUM 103 MG/DL (60-99); POTASSIUM, SERUM 3.5 MMOL/L (3.5-5.3); SODIUM, SERUM 142 MMOL/L (135-148)
[2016-07-05 03:01] LABS: BUN (BLOOD UREA NITROGEN) 10 MG/DL (6-23); CO2 (CARBON DIOXIDE) 27 MMOL/L (24-34)
[~2016-07-05 03:08] MED LIST changes: +ACET500CAP PO; +MIRALAX POWDER1 PKT PO; +PERCOCET 7.5/321 TAB PO
[2016-07-05 03:12] LABS: PLATELET ESTIMATE ADQ (ADEQUATE)
[2016-07-10] MEDS ORDERED: OMNICEF300 PO (21:20)
[2016-07-10] MEDS ORDERED: CIP5 PO (21:20)
[2016-07-10] MEDS ORDERED: NORCO1 TAB PO (21:21)
[2016-07-10] MEDS ORDERED: DITRO5 PO (21:25)
[2016-07-10] MEDS ORDERED: PYR100B PO (21:25)
== END 2016-07-05 05:11 | disposition home or self-care (01) ==
LOC: ER 03:08
PROVIDERS: Nurse Practitioner Acute Care
DX: N20.0 Calculus of kidney (principal); I10 Essential (primary) hypertension; D64.9 Anemia, unspecified; K31.84 Gastroparesis; Z88.6 Allergy status to analgesic agent; Z91.018 Allergy to other foods; Z79.899 Other long term (current) drug therapy
CPT/HCPCS: 80048; 81001; 85025; 87077; 87086; 87186; 96374; 96375; 96376; 99284; J1170; J2405

== ENCOUNTER 2016-07-07 19:02 | Emergency (ER) | payer SELFPAY ==
[2016-07-07 17:48] LABS: BASOPHILS 0.2 %; BASOPHILS ABSOLUTE 0.02 10/3/uL (0.0-0.16); EOSINOPHILS 2.9 %; EOSINOPHILS ABSOLUTE 0.29 10/3/uL (0.0-0.53); ER CBC TAT 0 Hrs 03 Mins; HEMATOCRIT 28.8 % (36.0-48.0); HEMOGLOBIN 8.3 g/dL (12.0-16.0); IMMATURE GRANULOCYTES 0.2 %; IMMATURE GRANULOCYTES ABSOLUTE 0.02 10/3/uL (0.0-0.11); LYMPHOCYTES 15.3 %; LYMPHOCYTES ABSOLUTE 1.55 10/3/uL (0.67-4.30); MEAN CORPUS HGB CONC 28.8 g/dL (32.0-36.0); MEAN CORPUSCULAR HEMOGLOB 18.4 pg (26.0-34.0); MEAN CORPUSCULAR VOLUME 63.7 fL (80-100); MEAN PLATELET VOLUME 8.8 fL (9.2-13.0); MONOCYTES 7.3 %; MONOCYTES ABSOLUTE 0.74 10/3/uL (0.21-1.20); NEUTROPHILS 74.1 %; NEUTROPHILS ABSOLUTE 7.49 10/3/uL (2.02-8.40); PLATELET COUNT 355 10/3/uL (150-400); RBC DISTRIBUTION WIDTH 19.3 % (12.0-16.0); RED CELL COUNT 4.52 10/6/uL (4.0-5.6); WHITE BLOOD CELLS 10.1 10/3/uL (4.5-10.5)
[2016-07-07 17:49] LABS: MANUAL DIFF NO %
[2016-07-07 18:01] LABS: ASCORBIC ACID (UR NOT ORDER) NEG (NEG); BILIRUBIN, URINE NEGATIVE (NEG); ER URINALYSIS TAT 0 Hrs 16 Mins; KETONE, URINE NEGATIVE (NEG); LEUKOCYTE ESTERASE(NOT OR TRACE (NEG); NITRITE (URINE) POS (NEG); WBC (NOT ORDERED) (RFLEX) 51 (0-5)
[2016-07-07 18:01] LABS: BUN (BLOOD UREA NITROGEN) 13 MG/DL (6-23); CALCIUM, SERUM 8.7 MG/DL (8.5-10.4); CHLORIDE, SERUM 104 MMOL/L (96-112); CO2 (CARBON DIOXIDE) 28 MMOL/L (24-34); GFR AFRICAN AMERICAN 103 ML/MIN (>=60); GFR NON AFRICAN AMERICAN 89 ML/MIN (>=60); POTASSIUM, SERUM 3.6 MMOL/L (3.5-5.3); SODIUM, SERUM 139 MMOL/L (135-148)
[2016-07-07 18:03] LABS: GLUCOSE, SERUM 135 MG/DL (60-99)
[2016-07-07 18:35] LABS: ANISOCYTOSIS 1+ (5-10/OIF) (0-5/OIF); ELLIPTOCYTES 1+ (3-10/OIF) (0-2/OIF); HYPOCHROMIA 3+ (>30/OIF) (0-2/OIF); PLATELET ESTIMATE ADQ (ADEQUATE)
[2016-07-10] MEDS ORDERED: OMNICEF300 PO (21:20)
[2016-07-10] MEDS ORDERED: CIP5 PO (21:20)
[2016-07-10] MEDS ORDERED: NORCO1 TAB PO (21:21)
[2016-07-10] MEDS ORDERED: PYR100B PO (21:25)
[2016-07-10] MEDS ORDERED: DITRO5 PO (21:25)
== END 2016-07-07 19:34 | disposition home or self-care (01) ==
LOC: ER 19:02
PROVIDERS: Nurse Practitioner
DX: N39.0 Urinary tract infection, site not specified (principal); D64.9 Anemia, unspecified; R82.71 Bacteriuria; Z96.0 Presence of urogenital implants; Z87.442 Personal history of urinary calculi; Z90.49 Acquired absence of other specified parts of digestive tract; Z88.6 Allergy status to analgesic agent; Z88.8 Allergy status to other drugs, medicaments and biological substances; Z79.899 Other long term (current) drug therapy
CPT/HCPCS: 74000; 80048; 81001; 85025; 87077; 87086; 87186; 96374; 96375; 99284; J1170; J2405; J2550

== ENCOUNTER 2016-07-10 22:30 | Inpatient (IN) | payer SELFPAY ==
--- NOTE | ~2016-07-10 | HP ---
History And Physical [address] [address] NAME: CAMERON REARDON : 70 STATUS : ADM Ramirez PAT#: [id number] AGE: 45 ADM/REG DATE : 07/10/16 MR#: [id number] REPORT SERV DATE: 07/11/16 DICTATED BY: BRENDON NGUYEN DATE: 07/11/16 REPORT STATUS : Draft TRANSCRIBED BY: MODL DATE: 07/11/16 DATE OF ADMISSION: 07/10/2016 CHIEF COMPLAINT: A 45-year-old female presenting with recurrent nephrolithiasis pain and hematuria. HISTORY OF PRESENT ILLNESS: The patient's history was obtained through careful interview with the patient and coupled with review of [facility] and [facility] medical records. The patient has been struggling with recurrent kidney stones for some time, but over the last two months they have become quite severe. She has had multiple procedures under the care Dr. Ramos since May with known retained kidney stones and ureteral stent placement. On 07/05/2016 she began to have increasing abdominal pain again, and also nausea and vomiting. She describes left flank discomfort, aching quality, 8/10 severity that is unremitting. There was concern about some kind of urinary tract infection with pyelonephritis recently and she has been on Omnicef and ciprofloxacin because of this. No fevers or chills. No shortness of breath. No diarrhea. Her hematuria also involves "chunks" of tissue that seems to come out in her urine. REVIEW OF SYSTEMS: Otherwise, a 14-point review of systems was obtained and was negative. PAST MEDICAL HISTORY: 1. Nephrolithiasis with left ureteral stent placement under the care of Dr. Ramos. 2. Pyelonephritis urinary tract infection. 3. Hypothyroidism. 4. Complete gastrectomy after gastric bypass surgery. 5. Migraine headaches. 6. No cardiac disease. No lung disease. PAST SURGICAL HISTORY: 1. . 2. Appendectomy. 3. Gastrectomy. 4. Hysterectomy. ALLERGIES: TO TORADOL, BENZOIN, STRAWBERRIES, AND SSRIS. SOCIAL HISTORY: No tobacco abuse. No drug abuse. She is . Lives in [place], [place]. Unemployed, used to work as a grants officer. Has children ages History And Physical [address] [address] NAME: CAMERON REARDON : 70 STATUS : ADM Ramirez PAT#: [id number] AGE: 45 ADM/REG DATE : 07/10/16 MR#: [id number] REPORT SERV DATE: 07/11/16 DICTATED BY: BRENDON NGUYEN DATE: 07/11/16 REPORT STATUS : Draft TRANSCRIBED BY: ELLE DATE: 07/11/16 8 and 11. FAMILY HISTORY: Significant for kidney stones. CURRENT MEDICATIONS: 1. Tylenol. 2. Omnicef 300 mg p.o. b.i.d. 3. Vitamin B12. 4. Benadryl. 5. Hydrocodone. 6. Synthroid 100 mcg daily. 7. Lopressor 50 mg p.o. b.i.d. 8. Pyridium. 9. MiraLAX packet daily. 10.Phenergan. 11.Imitrex. 12.Cipro. 13.Ditropan. PHYSICAL EXAMINATION: VITAL SIGNS: Temperature 97.4, pulse 95, blood pressure 155/96, respiratory rate 22, and O2 saturation 100% on room air. GENERAL: An ill-appearing female, in evidence of described distress secondary to left flank pain. HEENT: Pupils equal, round, and reactive to light. No conjunctival pallor. No scleral icterus. Nares are patent. Oropharynx is clear of obstruction. Moist mucous membranes. NECK: Trachea midline. No thyromegaly. LYMPH: No cervical lymphadenopathy. No supraclavicular lymphadenopathy. No inguinal lymphadenopathy. RESPIRATORY: Clear to auscultation at bases. No wheezes, rales, or rhonchi. Normal respiratory effort. CARDIOVASCULAR: Regular rate and rhythm. No murmurs, rubs, or gallops. No extremity edema is appreciated. ABDOMEN: Significant left flank tenderness and suprapubic abdominal discomfort. There is guarding, no rebound, nondistended. No hepatosplenomegaly. DERMATOLOGICAL: Warm and dry extremities. No pallor. No cyanosis. PSYCHIATRIC: Normal affect. Good mood. Alert and oriented x3. LABORATORY DATA: White blood cell count 8.8, hemoglobin 8.3, hematocrit 29.2 with an MCV of 64.7, and platelets 413. Sodium 137, potassium 3.4, chloride 104, bicarb 28, BUN 14, creatinine 0.73, glucose 100, and alcohol level 119. Serum test negative. Urinalysis shows greater than 182 red blood cells. History And Physical [address] [address] NAME: CAMERON REARDON : 70 STATUS : ADM Ramirez PAT#: [id number] AGE: 45 ADM/REG DATE : 07/10/16 MR#: [id number] REPORT SERV DATE: 07/11/16 DICTATED BY: BRENDON NGUYEN DATE: 07/11/16 REPORT STATUS : Draft TRANSCRIBED BY: ELLE DATE: 07/11/16 STUDIES: KUB was read as showing constipation, but no acute abnormality. ASSESSMENT AND PLAN: 1. Recurrent nephrolithiasis. Check a CT scan of the abdomen. Consult Dr. Ramos, urologist. 2. Hematuria. 3. Recent pyelonephritis. Hold antibiotics for now. Check urine culture. Check a CT scan of the abdomen and pelvis. 4. Microcytic anemia. Check iron studies. Check a hemoglobin electrophoresis, question possible thalassemia. KPL/RAYMONDL Brendon Nguyen M.D. / [id number] CC: Flaca Patton III, M.D.
--- NOTE | ~2016-07-10 | OP ---
Record Of Operation [facility] [address] [place]. [address] NAME: CAMERON REARDON : 70 STATUS : DIS IN PAT#: [id number] AGE: 45 ADM/REG DATE : 07/10/16 MR#: [id number] REPORT SERV DATE: 08/11/16 DICTATED BY: COOPER MILLER III DATE: 08/11/16 REPORT STATUS : Draft TRANSCRIBED BY: MODL DATE: 08/11/16 DATE OF PROCEDURE: 07/10/2016 PROCEDURES: Cystoscopy, left retrograde; left ureteroscopy; and stent removal. PREOPERATIVE DIAGNOSIS: Status post stone removal with persistent pain. POSTOPERATIVE DIAGNOSIS: Status post stone removal with persistent pain. DESCRIPTION OF PROCEDURE: The patient was induced under general anesthesia, placed in dorsal lithotomy position, prepped and draped in a sterile fashion. After being prepped and draped, the cystoscopy was done. The stent was pulled through the meatus. A wire was placed in the left renal pelvis. A flexible scope was passed up to the ureter. No stones were noted. The kidney was examined, and there were no remaining stones. The stent was left out and the procedure was terminated. The patient tolerated the procedure. OB/MODL Cooper Miller III, M.D. / [id number] CC: Gaby Tenorio M.D.
--- NOTE | ~2016-07-10 | DS ---
Discharge Summary [address] [facility]. [address] NAME: CAMERON REARDON : 70 STATUS : DIS Ramirez PAT#: [id number] AGE: 45 ADM/REG DATE : 07/10/16 MR#: [id number] REPORT SERV DATE: 07/14/16 DICTATED BY: JOVANNY SNOW DATE: 07/14/16 REPORT STATUS : Draft TRANSCRIBED BY: MODL DATE: 07/14/16 ADMISSION DATE: 07/10/2016 DISCHARGE DATE: 07/14/2016 DIAGNOSES ON ADMISSION: 1. Recurrent nephrolithiasis. 2. Hematuria. 3. Recent pyelonephritis. 4. Microcytic anemia. DIAGNOSES ON DISCHARGE: 1. Hematuria, resolved, status post left-sided ureteral stent removal per Dr. Ramos. 2. Recent pyelonephritis. No evidence of urinary infection currently, negative urinary culture, completed inpatient antibiotics, no need for outpatient antibiotics, discussed with Dr. Ramos, he does not recommend antibiotics as outpatient. 3. Chronic microcytic anemia with some iron deficiency, likely secondary to malabsorption syndrome, history of gastric bypass surgery in the past. 4. Status post 1 unit of blood transfusion for her anemia, stable hemoglobin and hematocrit. 5. Hypertension, controlled. 6. Pain, improved. 7. Stones present in a dilated calyx, needs to follow up with Dr. Ramos in two to three weeks for possible nephrostomy tubes and other procedures. CONSULTANTS ON THE CASE: Dr. Cooper Ramos and Dr. Jone Mendenhall. The patient was seen by hospitalist team, was admitted by Dr. Pastrana, and was seen by Dr. Lao and ak. IMAGING STUDIES DONE DURING THIS HOSPITALIZATION: CT of the abdomen and pelvis done on 07/13/2016, no evidence of left hydronephrosis, no evidence of perinephric stranding or periureteral stranding to suggest inflammatory process, stable right nephrolithiasis without hydronephrosis or ureterolithiasis. PROCEDURE: Procedure done today is right ureteral stent removal. HISTORY OF PRESENT ILLNESS: Briefly, this is a very pleasant 45-year-old female, who was admitted by my colleague, Dr. Pastrana, for recurrent nephrolithiasis and pain. For details, see history of present illness dictated by Dr. Pastrana. Afterwards, the patient was seen by Dr. Lao, and Dr. Cooper Ramos was seeing the patient for her hematuria. The patient has was having hematuria and pain on the right flank. For her hydronephrosis, Dr. Ramos did stent removal yesterday. The patient's flank pain on the right side improved and she is doing much better. Dr. Ramos saw that there is a pocket in her calyx where there are stones. He needs to see the patient as outpatient in three weeks for possible other procedure and possibly nephrostomy tube placement according to Dr. Ramos. The patient has microcytic anemia and she has iron deficiency probably with some degree of malabsorption Discharge Summary [address] [facility] [place]. [address] NAME: CAMERON REARDON : 70 STATUS : DIS Ramirez PAT#: [id number] AGE: 45 ADM/REG DATE : 07/10/16 MR#: [id number] REPORT SERV DATE: 07/14/16 DICTATED BY: JOVANNY SNOW DATE: 07/14/16 REPORT STATUS : Draft TRANSCRIBED BY: ELLE DATE: 07/14/16 from her history of gastric bypass, but she was also having hematuria, so she had 1 unit of blood transfusion and her hemoglobin increased to 9.9. She was very stable. Her flank pain has improved. Blood pressure was controlled. The patient was discharged in stable condition according to recommendation of urologist, Dr. Cooper Ramos. Her blood pressure was 121/59, heart rate was 72, temperature 98.5, and respirations 16. Dr. Ramos did not recommend to give her any antibiotics on discharge since her urine culture came back negative and did not show any colonies as well as she completed her inpatient antibiotics. The patient was recommended to follow up with her primary care physician. Since she does not have a primary care physician, I asked assistant case manager to help with that issue as well as she was recommended to follow up with Dr. Ramos per his recommendations. DISCHARGE MEDICATIONS: Vitamin B12 1000 mcg intramuscularly every 30 day, Benadryl 50 mg p.o. q.i.d., levothyroxine 100 mcg a day, metoprolol dose was decreased to 25 p.o. b.i.d., oxybutynin 5 mg p.o. three times a day, MiraLAX 17 g p.o. daily, Tylenol 500 mg four times daily p.r.n. for pain, Imitrex 100 mg p.o. daily as needed; Phenergan 25 mg p.o. q.8 hours p.r.n. for nausea, prescription was given to the patient for total of 15 pills without any refills; hydrocodone with acetaminophen 7.5/500 q.6 hours p.r.n., was prescribed by Dr. Ramos; Pyridium 100 mg p.o. t.i.d., to continue; hydralazine 10 mg p.o. b.i.d. p.r.n. for systolic blood pressure more than 140 was also prescribed to the patient. FOLLOWUP: The patient to follow up with Dr. Ramos in three weeks. The patient to find a primary care physician and assistant case manager to help with primary care physician. CONDITION: The patient was discharged in stable condition. TIME SPENT: I spent 45 minutes on discharge. DICTATED BY: Flaca Self/ELLE Jovanny Snow M.D. / [id number] CC: Jovanny Snow M.D. NO PCP Cooper Ramos III, M.D.
--- NOTE | ~2016-07-10 | CN ---
Consultation Report [facility] [address] [place]. [address] NAME: CAMERON REARDON : 70 STATUS : ADM Ramirez PAT#: [id number] AGE: 45 ADM/REG DATE : 07/10/16 MR#: [id number] REPORT SERV DATE: 07/11/16 DICTATED BY: JONE QUILES DATE: 07/11/16 REPORT STATUS : Draft TRANSCRIBED BY: MODL DATE: 07/11/16 CONSULTATION DATE OF CONSULTATION: 07/11/2016 This is consultation of Dr. Cooper Ramos during his absence. REASON FOR CONSULTATION: Pain with stent. IMPRESSION: 1. Urinary tract infection. Two organisms, both sensitive to the Zosyn, but both resistant to the prior antibiotic therapy of Cipro and Omnicef. 2. Left ureteral stent with pain from her stent in both the bladder and in the back. The urinary tract infection is probably aggravating the stent discomfort. 3. Hematuria from urinary tract infection. PLAN: 1. Switch antibiotics to Zosyn 3.35 g IV q.6 hours. 2. No need for continuous bladder irrigation. 3. Dr. Ramos has schedule stent removal in four days' time. I think that is probably the appropriate time frame of antibiotic therapy and subsequent stent removal. 4. She should improve with her directed antibiotics. DISCUSSION: Ms Reardon is a 45-year-old white female, who has had a left ureteroscopy and stone extraction. She has ureteral stent in place. She has not tolerated the stent well and she has had some urinary tract infections and had been tried to be managed as an outpatient. She came to the hospital yesterday with persistent pain and discomfort from her stent. She describes discomfort mostly in her bladder but also in her left flank. She said she was having nausea, vomiting, and fever, although none of the fevers had been documented. PAST MEDICAL HISTORY: Significant for nephrolithiasis, hypothyroidism, gastric bypass surgery, migraine headaches. PAST SURGICAL HISTORY: section, appendectomy, gastrectomy, and hysterectomy. MEDICATIONS: At home were Omnicef, Cipro, acetaminophen, Benadryl, hydrocodone 10s, Synthroid, metoprolol, Pyridium, MiraLAX, Phenergan, Imitrex, and Ditropan. ALLERGIES: INCLUDE TORADOL, BENZOIN, STRAWBERRIES, AND SELECTIVE SEROTONIN-REUPTAKE INHIBITORS. SOCIAL HISTORY: She denies drug, alcohol, or tobacco abuse. FAMILY HISTORY: Urolithiasis. Consultation Report [address] [place]. [address] NAME: CAMERON REARDON : 70 STATUS : ADM Ramirez PAT#: [id number] AGE: 45 ADM/REG DATE : 07/10/16 MR#: [id number] REPORT SERV DATE: 07/11/16 DICTATED BY: JONE QUILES DATE: 07/11/16 REPORT STATUS : Draft TRANSCRIBED BY: ELLE DATE: 07/11/16 PHYSICAL EXAMINATION: GENERAL: Shows a well-developed, well-nourished, white female, in no acute distress. She is somewhat emotionally labile. She was awake and alert. VITAL SIGNS: She is afebrile with her last temperature being 97.9, pulse 74, blood pressure 154/102. HEENT: Sclerae anicteric. NECK: Supple. LUNGS: Clear. HEART: Regular rate and rhythm. FLANKS: Left flank subjectively tender. ABDOMEN: Soft, nontender. No guarding or rebound. EXTREMITIES: Lower extremities have no deformities. STUDIES: Serum creatinine of 0.7, white count 10.1, hemoglobin 7.7, hematocrit 27.5. I reviewed the CT scan. The stent is well positioned in the left kidney. I see one minute stone fragment in the left kidney. No other stone fragments are noted. The bladder is decompressed. No other abnormalities noted. PF/ELLE Jone Quiles M.D. / [id number] CC: Tirso Lao M.D.
[2016-07-10 19:50] LABS: WBC (NOT ORDERED) (RFLEX) 0 (0-5)
[2016-07-10 19:50] LABS: BASOPHILS 0.6 %; BASOPHILS ABSOLUTE 0.05 10/3/uL (0.0-0.16); EOSINOPHILS 3.7 %; EOSINOPHILS ABSOLUTE 0.33 10/3/uL (0.0-0.53); ER CBC TAT 0 Hrs 05 Mins; HEMATOCRIT 29.2 % (36.0-48.0); HEMOGLOBIN 8.3 g/dL (12.0-16.0); IMMATURE GRANULOCYTES 0.1 %; IMMATURE GRANULOCYTES ABSOLUTE 0.01 10/3/uL (0.0-0.11); LYMPHOCYTES 25.5 %; LYMPHOCYTES ABSOLUTE 2.25 10/3/uL (0.67-4.30); MANUAL DIFF NO %; MEAN CORPUS HGB CONC 28.4 g/dL (32.0-36.0); MEAN CORPUSCULAR HEMOGLOB 18.4 pg (26.0-34.0); MEAN CORPUSCULAR VOLUME 64.7 fL (80-100); MEAN PLATELET VOLUME 8.4 fL (9.2-13.0); MONOCYTES 6.9 %; MONOCYTES ABSOLUTE 0.61 10/3/uL (0.21-1.20); NEUTROPHILS 63.2 %; NEUTROPHILS ABSOLUTE 5.59 10/3/uL (2.02-8.40); PLATELET COUNT 413 10/3/uL (150-400); RBC DISTRIBUTION WIDTH 19.5 % (12.0-16.0); RED CELL COUNT 4.51 10/6/uL (4.0-5.6); WHITE BLOOD CELLS 8.8 10/3/uL (4.5-10.5)
[2016-07-10 20:06] LABS: ASCORBIC ACID (UR NOT ORDER) NEG (NEG); BILIRUBIN, URINE NEGATIVE (NEG); KETONE, URINE NEGATIVE (NEG); LEUKOCYTE ESTERASE(NOT OR TRACE (NEG); NITRITE (URINE) POS (NEG)
[2016-07-10 20:07] LABS: ALBUMIN 3.6 G/DL (3.5-5.0); ALKALINE PHOSPHATASE 119 U/L (45-117); BUN (BLOOD UREA NITROGEN) 14 MG/DL (6-23); CHLORIDE, SERUM 104 MMOL/L (96-112); CO2 (CARBON DIOXIDE) 28 MMOL/L (24-34); CREATININE 0.73 MG/DL (0.55-1.02); GFR AFRICAN AMERICAN 115 ML/MIN (>=60); GFR NON AFRICAN AMERICAN 99 ML/MIN (>=60); GLOBULIN 3.7 G/DL (2.5-4.1); POTASSIUM, SERUM 3.4 MMOL/L (3.5-5.3); SGOT(AST) 16 U/L (5-40); SGPT(ALT) 20 U/L (5-65); SODIUM, SERUM 137 MMOL/L (135-148); TOTAL BILIRUBIN 0.4 MG/DL (0-1.2); TOTAL PROTEIN 7.3 G/DL (6.0-8.5)
[2016-07-10 20:08] LABS: GLUCOSE, SERUM 100 MG/DL (60-99)
[2016-07-10 20:27] LABS: PLATELET ESTIMATE SLT INC (ADEQUATE)
[2016-07-10 20:28] LABS: ANISOCYTOSIS 1+ (5-10/OIF) (0-5/OIF); MICROCYTES 4+ (>50/OIF) (0-5/OIF)
[2016-07-10 22:14] LABS: LACTATE 1.1 MMOL/L (0.3-2.4)
[~2016-07-10 22:30] MED LIST changes: +CIP5 PO; +DITRO5 PO; +OMNICEF300 PO; +PYR100B PO
[2016-07-11 04:05] LABS: BASOPHILS 0.4 %; BASOPHILS ABSOLUTE 0.04 10/3/uL (0.0-0.16); HEMATOCRIT 27.5 % (36.0-48.0); HEMOGLOBIN 7.7 g/dL (12.0-16.0); IMMATURE GRANULOCYTES 0.3 %; IMMATURE GRANULOCYTES ABSOLUTE 0.03 10/3/uL (0.0-0.11); LYMPHOCYTES 26.8 %; MANUAL DIFF NO %; MEAN CORPUSCULAR HEMOGLOB 18.3 pg (26.0-34.0); MEAN CORPUSCULAR VOLUME 65.5 fL (80-100); MEAN PLATELET VOLUME 8.9 fL (9.2-13.0); MONOCYTES 5.9 %; NEUTROPHILS 62.6 %; NEUTROPHILS ABSOLUTE 6.32 10/3/uL (2.02-8.40); PLATELET COUNT 390 10/3/uL (150-400); RBC DISTRIBUTION WIDTH 19.5 % (12.0-16.0); WHITE BLOOD CELLS 10.1 10/3/uL (4.5-10.5)
[2016-07-11 04:13] LABS: PARTIAL THROMBO TIME 28.4 SEC (22.5-37.2); PROTIME (NOT ORD) 12.6 SEC (12.0-14.5)
[2016-07-11 04:20] LABS: A/G RATIO 0.9 (0.7-1.9); ALBUMIN 3.1 G/DL (3.5-5.0); BUN (BLOOD UREA NITROGEN) 12 MG/DL (6-23); CALCIUM, SERUM 8.1 MG/DL (8.5-10.4); CHLORIDE, SERUM 109 MMOL/L (96-112); CREATININE 0.68 MG/DL (0.55-1.02); FERRITIN 4 NG/ML (8-252); GFR AFRICAN AMERICAN 122 ML/MIN (>=60); GFR NON AFRICAN AMERICAN 106 ML/MIN (>=60); GLOBULIN 3.5 G/DL (2.5-4.1); GLUCOSE, SERUM 103 MG/DL (60-99); IRON BINDING CAPACITY 387 MCG/DL (225-410); IRON, SERUM 12 MCG/DL (35-150); POTASSIUM, SERUM 3.9 MMOL/L (3.5-5.3); SGOT(AST) 20 U/L (5-40); SGPT(ALT) 20 U/L (5-65); SODIUM, SERUM 140 MMOL/L (135-148); TOTAL BILIRUBIN 0.2 MG/DL (0-1.2); TOTAL PROTEIN 6.6 G/DL (6.0-8.5)
[2016-07-11 04:22] LABS: ALKALINE PHOSPHATASE 107 U/L (45-117); CO2 (CARBON DIOXIDE) 20 MMOL/L (24-34)
[2016-07-11 04:32] LABS: ANISOCYTOSIS 1+ (5-10/OIF) (0-5/OIF); MICROCYTES 4+ (>50/OIF) (0-5/OIF); PLATELET ESTIMATE ADQ (ADEQUATE)
[2016-07-11 04:33] LABS: HYPOCHROMIA 1+ (3-10/OIF) (0-2/OIF); OVALOCYTES 1+ (3-10/OIF) (0-2/OIF); POIKILOCYTOSIS 1+ (5-10/OIF) (0-5/OIF); POLYCHROMASIA 1+ (2-5/OIF) (0-1/OIF)
[2016-07-11 05:03] LABS: ASCORBIC ACID (UR NOT ORDER) NEG (NEG); BILIRUBIN, URINE NEGATIVE (NEG); KETONE, URINE NEGATIVE (NEG); LEUKOCYTE ESTERASE(NOT OR MOD (NEG); WBC (NOT ORDERED) (RFLEX) 36 (0-5)
[2016-07-11] MEDS ORDERED: CEFT5 PO (10:41)
[2016-07-13 07:46] LABS: CALCIUM, SERUM 8.3 MG/DL (8.5-10.4); CHLORIDE, SERUM 109 MMOL/L (96-112); CREATININE 0.69 MG/DL (0.55-1.02); GFR AFRICAN AMERICAN 122 ML/MIN (>=60); GFR NON AFRICAN AMERICAN 105 ML/MIN (>=60); GLUCOSE, SERUM 102 MG/DL (60-99); POTASSIUM, SERUM 3.8 MMOL/L (3.5-5.3); SODIUM, SERUM 141 MMOL/L (135-148)
[2016-07-13 07:47] LABS: BUN (BLOOD UREA NITROGEN) 8 MG/DL (6-23); CO2 (CARBON DIOXIDE) 25 MMOL/L (24-34)
[2016-07-13 07:51] LABS: HEMATOCRIT 25.4 % (36.0-48.0)
[2016-07-13 12:55] LABS: INTERNATIONAL NORMAL RATI 0.9 UNITS (-); PROTIME (NOT ORD) 12.3 SEC (12.0-14.5)
[2016-07-13 13:23] LABS: PFA (COL/ADP) 107 SEC (51-105); PFA (COL/EPI) > 254 SEC (72-180)
[2016-07-14 05:46] LABS: BASOPHILS 0.5 %; BASOPHILS ABSOLUTE 0.03 10/3/uL (0.0-0.16); EOSINOPHILS 3.2 %; EOSINOPHILS ABSOLUTE 0.21 10/3/uL (0.0-0.53); IMMATURE GRANULOCYTES 0.6 %; IMMATURE GRANULOCYTES ABSOLUTE 0.04 10/3/uL (0.0-0.11); LYMPHOCYTES 35.9 %; LYMPHOCYTES ABSOLUTE 2.36 10/3/uL (0.67-4.30); MEAN PLATELET VOLUME 8.9 fL (9.2-13.0); MONOCYTES 5.8 %; MONOCYTES ABSOLUTE 0.38 10/3/uL (0.21-1.20); NEUTROPHILS ABSOLUTE 3.55 10/3/uL (2.02-8.40); RBC DISTRIBUTION WIDTH 22.7 % (12.0-16.0); RED CELL COUNT 4.74 10/6/uL (4.0-5.6); WHITE BLOOD CELLS 6.6 10/3/uL (4.5-10.5)
[2016-07-14 05:47] LABS: HEMATOCRIT 33.1 % (36.0-48.0); HEMOGLOBIN 9.9 g/dL (12.0-16.0); MEAN CORPUS HGB CONC 29.9 g/dL (32.0-36.0); MEAN CORPUSCULAR HEMOGLOB 20.9 pg (26.0-34.0); MEAN CORPUSCULAR VOLUME 69.8 fL (80-100); PLATELET COUNT 117 10/3/uL (150-400)
[2016-07-14 05:48] LABS: MANUAL DIFF NO %
[2016-07-14 06:10] LABS: PLATELET ESTIMATE SLT DEC (ADEQUATE)
[2016-07-14 06:11] LABS: POLYCHROMASIA 1+ (2-5/OIF) (0-1/OIF)
[2016-07-14 07:56] LABS: BUN (BLOOD UREA NITROGEN) 7 MG/DL (6-23); CALCIUM, SERUM 8.7 MG/DL (8.5-10.4); CHLORIDE, SERUM 109 MMOL/L (96-112); CO2 (CARBON DIOXIDE) 25 MMOL/L (24-34); CREATININE 0.65 MG/DL (0.55-1.02); GFR AFRICAN AMERICAN 124 ML/MIN (>=60); GFR NON AFRICAN AMERICAN 107 ML/MIN (>=60); GLUCOSE, SERUM 92 MG/DL (60-99); SODIUM, SERUM 140 MMOL/L (135-148)
[2016-07-14] MEDS ORDERED: PERCOCET 7.5/321 TAB PO (13:25)
[2016-07-14] MEDS ORDERED: APRES10B PO (13:26)
[2016-07-14] MEDS ORDERED: LOP25 PO (13:27)
[2016-07-19 09:12] LABS: HGB A2 2.2 % (1.0-3.8); HGB F <1.0 % (0.0-2.0); ZINC PROTOPORPHYRIN/HEME RATIO 220 umol/mol (23-78)
== END 2016-07-14 13:52 | disposition home or self-care (01) | DRG 669 ==
LOC: ER 22:30 → CDU1 22:36
PROVIDERS: Hospitalist; Internal Medicine; Specialist; Urology
PROC: 30233N1 Transfusion of Nonautologous Red Blood Cells into Peripheral Vein, Percutaneous Approach (ICD-10-PCS; 2016-07-13)
PROC: 0TC78ZZ Extirpation of Matter from Left Ureter, Via Natural or Artificial Opening Endoscopic (ICD-10-PCS; principal; 2016-07-14 07:15)
DX: T83.84XA Pain due to genitourinary prosthetic devices, implants and grafts, initial encounter (principal); N20.1 Calculus of ureter; K91.2 Postsurgical malabsorption, not elsewhere classified; D62 Acute posthemorrhagic anemia; I10 Essential (primary) hypertension; K95.89 Other complications of other bariatric procedure; E03.9 Hypothyroidism, unspecified; D50.9 Iron deficiency anemia, unspecified; Y83.8 Other surgical procedures as the cause of abnormal reaction of the patient, or of later complication, without mention of misadventure at the time of the procedure; Z98.84 Bariatric surgery status; Y92.9 Unspecified place or not applicable
CPT/HCPCS: 36415; 74000; 74176; 80048; 80053; 81001; 82728; 83021; 83540; 83550; 83605; 83690; 83735; 84703; 85014; 85018; 85025; 85576; 85610; 85730; 86850; 86900; 86901; 86920; 87040; 87086; 99285; A9270-GY; C1758; C1769; J0295; J1170; J1750; J2250; J2405; J2543; J2550; J3010; J3370; P9016; Q9967

== ENCOUNTER 2016-08-01 20:23 | Emergency (ER) | payer SELFPAY ==
[~2016-08-01 20:23] MED LIST changes: +APRES10B PO; +CEFT5 PO
[2016-08-01 21:01] LABS: BASOPHILS 0.7 %; BASOPHILS ABSOLUTE 0.06 10/3/uL (0.0-0.16); EOSINOPHILS 2.3 %; ER CBC TAT 0 Hrs 03 Mins; IMMATURE GRANULOCYTES 0.2 %; IMMATURE GRANULOCYTES ABSOLUTE 0.02 10/3/uL (0.0-0.11); LYMPHOCYTES 22.9 %; LYMPHOCYTES ABSOLUTE 2.03 10/3/uL (0.67-4.30); MEAN PLATELET VOLUME 9.8 fL (9.2-13.0); MONOCYTES 7.8 %; MONOCYTES ABSOLUTE 0.69 10/3/uL (0.21-1.20); NEUTROPHILS 66.1 %; NEUTROPHILS ABSOLUTE 5.86 10/3/uL (2.02-8.40); RED CELL COUNT 5.65 10/6/uL (4.0-5.6); WHITE BLOOD CELLS 8.9 10/3/uL (4.5-10.5)
[2016-08-01 21:06] LABS: HEMATOCRIT 42.8 % (36.0-48.0); HEMOGLOBIN 13.6 g/dL (12.0-16.0); MANUAL DIFF NO %; MEAN CORPUS HGB CONC 31.8 g/dL (32.0-36.0); MEAN CORPUSCULAR HEMOGLOB 24.1 pg (26.0-34.0); MEAN CORPUSCULAR VOLUME 75.8 fL (80-100); PLATELET COUNT 246 10/3/uL (150-400)
[2016-08-01 21:11] LABS: ASCORBIC ACID (UR NOT ORDER) NEG (NEG); BILIRUBIN, URINE SMALL (NEG); ER URINALYSIS TAT 0 Hrs 13 Mins; KETONE, URINE NEGATIVE (NEG); LEUKOCYTE ESTERASE(NOT OR MOD (NEG); WBC (NOT ORDERED) (RFLEX) 18 (0-5)
[2016-08-01 21:12] LABS: NITRITE (URINE) NEG (NEG)
[2016-08-01 21:14] LABS: BUN (BLOOD UREA NITROGEN) 17 MG/DL (6-23); CALCIUM, SERUM 9.4 MG/DL (8.5-10.4); CHLORIDE, SERUM 107 MMOL/L (96-112); CO2 (CARBON DIOXIDE) 21 MMOL/L (24-34); CREATININE 0.88 MG/DL (0.55-1.02); GFR AFRICAN AMERICAN 92 ML/MIN (>=60); GFR NON AFRICAN AMERICAN 79 ML/MIN (>=60); GLUCOSE, SERUM 99 MG/DL (60-99); POTASSIUM, SERUM 3.6 MMOL/L (3.5-5.3); SODIUM, SERUM 138 MMOL/L (135-148)
[2016-08-01 21:21] LABS: PLATELET ESTIMATE ADQ (ADEQUATE)
[2016-08-01 21:27] LABS: ACANTHOCYTES OCC (0-2/OIF); HYPOCHROMIA 1+ (3-10/OIF) (0-2/OIF); TEARDROP SHAPED RBCS OCC (0-2/OIF)
== END 2016-08-02 06:00 | disposition home or self-care (01) ==
LOC: ER 20:23
PROVIDERS: Emergency Medicine
DX: R10.32 Left lower quadrant pain (principal); R11.2 Nausea with vomiting, unspecified; Z87.442 Personal history of urinary calculi; Z88.6 Allergy status to analgesic agent; Z88.8 Allergy status to other drugs, medicaments and biological substances; Z79.899 Other long term (current) drug therapy
CPT/HCPCS: 74000; 80048; 81001; 85025; 87086; 96372; 96374; 96375; 96376; 99284; J1170; J2405; J2550